=== PATIENT | female | born 1975 | race Asian ===

== ENCOUNTER → 2018-01-07 | Outpatient (CLI) | payer BC ==
[~2018-01-07] MED LIST: NO HOME MEDICATIONS
== END ==
LOC: MC.RAD 07:30
DX: Z53.8 Procedure and treatment not carried out for other reasons (principal); N60.02 Solitary cyst of left breast

== ENCOUNTER → 2018-02-02 | Outpatient (CLI) | payer BC | LOC: MC.RAD 07:30 | DX: N60.02 Solitary cyst of left breast (principal) ==

== ENCOUNTER → 2018-11-09 | Outpatient (CLI) | payer BC | LOC: MC.RAD 10:57 | DX: Z12.31 Encounter for screening mammogram for malignant neoplasm of breast (principal) ==